=== PATIENT | female | born 1950 | race Caucasian/White ===

== ENCOUNTER 2021-05-10 10:37 | Emergency (ER) | payer MEDICARE, OTHER ==
[~2021-05-10] VITALS: Ht 149.9 cm; Wt 57.0 kg
[2021-05-10 11:00] VITALS: BP 164/63
[2021-05-10] MEDS ORDERED: TETANUS, DIPHTHERIA, PERTUSSIS VAC/PF 0.5ML (>10YR OLD) IM ONE (11:15)
[2021-05-10] MEDS ORDERED: BACITRACIN ZINC OINT UDPKT TOP ONE (11:15)
[2021-05-10] MEDS ORDERED: LIDOCAINE HCL/PF 1% 10 MG/ML 5ML VIAL INFIL ONE (11:15)
[2021-05-10] MEDS ORDERED: LIDOCAINE HCL 1% 10 MG/ML 10ML VIAL INJ NR (12:00)
[2021-05-10] MEDS ORDERED: CIPR500T5 MT (13:36)
== END 2021-05-10 14:01 | disposition home or self-care (01) ==
LOC: ER 10:37
DX: S01.311A Laceration without foreign body of right ear, initial encounter (principal); S09.8XXA Other specified injuries of head, initial encounter; W10.8XXA Fall (on) (from) other stairs and steps, initial encounter; Y93.01 Activity, walking, marching and hiking; Y92.018 Other place in single-family (private) house as the place of occurrence of the external cause; I10 Essential (primary) hypertension; M19.90 Unspecified osteoarthritis, unspecified site
CPT/HCPCS: 12013; 70450; 90471; 90715; 93005; 99284; J3490

== ENCOUNTER 2021-05-12 10:10 | Emergency (ER) | payer MEDICARE ==
[~2021-05-12] VITALS: Ht 149.9 cm; Wt 57.0 kg
[~2021-05-12 10:10] MED LIST: CIPR500T5 MT
[2021-05-12 10:32] VITALS: BP 146/53
== END 2021-05-12 10:48 | disposition home or self-care (01) ==
LOC: ER 10:10
DX: Z48.00 Encounter for change or removal of nonsurgical wound dressing (principal); I10 Essential (primary) hypertension
CPT/HCPCS: 99281

== ENCOUNTER 2021-05-17 10:55 | Emergency (ER) | payer MEDICARE ==
[~2021-05-17] VITALS: Ht 149.9 cm; Wt 57.0 kg
[2021-05-17 11:03] VITALS: BP 127/72
== END 2021-05-17 13:22 | disposition home or self-care (01) ==
LOC: ER 10:55
DX: Z48.02 Encounter for removal of sutures (principal)
CPT/HCPCS: 99281